=== PATIENT | male | born 2005 | race Hispanic/Latino ===

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

== ENCOUNTER → 2024-08-09 15:09 | Outpatient (ROUT) | payer OTHER, MEDICAID, SELFPAY ==
[2024-08-09 16:48] LABS: Urine N gonorrhoeae NOT DETECTED
[2024-08-09 16:49] LABS: Urine Chlamydia NOT DETECTED
== END ==
PROVIDERS: Family Provider Pediatrics; PCP Pediatrics; Visit Provider Family Medicine
DX: Z11.3 Encounter for screening for infections with a predominantly sexual mode of transmission (principal)
CPT/HCPCS: 87491; 87591